=== PATIENT | female | born 1980 | race Two or more races ===

== ENCOUNTER → 2020-02-16 09:51 | Outpatient (CLI) | payer OTHER | END | disposition home or self-care (01) | LOC: LAB 09:51 | DX: E03.8 Other specified hypothyroidism (principal); I10 Essential (primary) hypertension; E78.49 Other hyperlipidemia; E55.9 Vitamin D deficiency, unspecified ==

== ENCOUNTER → 2020-03-07 | Outpatient (CLI) | payer OTHER | END | disposition home or self-care (01) | LOC: MAMO-SONO 03-03 09:45 | DX: Z12.31 Encounter for screening mammogram for malignant neoplasm of breast (principal) ==

== ENCOUNTER 2021-03-09 08:54 | Outpatient (CLI) | payer OTHER | END 2021-03-09 08:58 | disposition home or self-care (01) | LOC: MAMO-SONO 08:54 | DX: N83.292 Other ovarian cyst, left side (principal); N64.59 Other signs and symptoms in breast; D25.1 Intramural leiomyoma of uterus; N64.4 Mastodynia ==

== ENCOUNTER 2021-03-13 08:55 | Outpatient (CLI) | payer OTHER | END 2021-03-13 08:56 | disposition home or self-care (01) | LOC: LAB 08:55 | PROVIDERS: ATTEND Obstetrics & Gynecology | DX: E03.8 Other specified hypothyroidism (principal); N92.5 Other specified irregular menstruation; D50.8 Other iron deficiency anemias; I10 Essential (primary) hypertension; E55.9 Vitamin D deficiency, unspecified ==

== ENCOUNTER 2022-05-09 13:10 | Outpatient (CLI) | payer OTHER | END 2022-05-09 13:16 | disposition home or self-care (01) | LOC: MAMO-SONO 13:10 | DX: Z12.31 Encounter for screening mammogram for malignant neoplasm of breast (principal) ==